=== PATIENT | female | born 1985 ===

== ENCOUNTER 2024-02-02 06:06 | Emergency (ER) | payer OTHER, SELFPAY ==
[2024-02-02 06:07] VITALS: BP 99/45; PULSE 108; TEMP 37; O2SAT 95; BMI 22.5
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
[2024-02-02] MEDS: PROMETHAZINE HCL 25 MG/ML VIAL IM (06:31)
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
[2024-02-02] MEDS: MORPHINE SULFATE 2 MG/ML SYRINGE 1 MG IV (08:30)
[2024-02-02] MEDS: ONDANSETRON PF 4 MG/2 ML VIAL IV ×2 (08:31→09:20)
[2024-02-02 09:16] VITALS: BP 95/53
[2024-02-02] MEDS: KETOROLAC TROMETHAMINE 30 MG/ML VIAL 15 MG IVP ×2 (09:19→10:15)
[2024-02-02] MEDS: MORPHINE SULFATE 2 MG/ML SYRINGE IV (09:19)
[2024-02-02 09:24] VITALS: O2SAT 98
[2024-02-02 09:25] VITALS: BP 101/52; O2SAT 98
[2024-02-02] MEDS: PROCHLORPERAZINE 10 MG/2 ML VIAL IV (10:15)
== END 2024-02-02 11:35 | disposition home or self-care (01) ==
PROVIDERS: Emergency Provider Emergency Medicine
DX: R51.9 Headache, unspecified (principal); S09.90XA Unspecified injury of head, initial encounter; V40.6XXA Car passenger injured in collision with pedestrian or animal in traffic accident, initial encounter
CPT/HCPCS: 70450; 71045; 72125; 73030; 74176; 96372; 96374; 96375; 96376; 99284; J0780; J1885; J2250; J2270; J2405

== ENCOUNTER 2024-06-04 11:30 | Emergency (ER) | payer OTHER, SELFPAY ==
[2024-06-04 11:42] VITALS: BP 103/73; PULSE 86; TEMP 36.6; O2SAT 100; BMI 23.2
[2024-06-04 12:40] LABS: Basophils Absolute Auto 0.1 10^3/uL (0.0-0.1); Basophils Percent Auto 0.8 % (0.2-2.0); Eosinophils Percent Auto 0.3 % (0.9-7.0); Hemoglobin 14.1 g/dL (12.0-16.0); Immature Granulocytes Abs Auto 0.02 10^3/uL (0.00-0.03); Immature Granulocytes Pct Auto 0.3 % (0.0-0.5); Lymphocytes Absolute Auto 2.2 10^3/uL (1.2-3.8); Lymphocytes Percent Auto 29.3 % (20.5-60.0); Mean Corpuscular HGB Conc 33.6 g/dL (29.9-35.2); Mean Corpuscular Hemoglobin 29.8 pg (26.7-34.0); Mean Corpuscular Volume 88.8 fL (81.0-99.0); Mean Platelet Volume 9.3 fL (9.5-13.5); Monocytes Absolute Auto 0.4 10^3/uL (0.3-0.8); Monocytes Percent Auto 5.9 % (1.7-12.0); Neutrophils Absolute Auto 4.7 10^3/uL (1.4-6.5); Neutrophils Percent Auto 63.4 % (43.0-75.0); Platelet Count 256 10^3/uL (150-450); Red Blood Count 4.73 10^6/uL (4.20-5.40); Red Cell Distribution Width 12.6 % (11.0-15.0); White Blood Count 7.5 10^3/uL (4.0-11.0)
[2024-06-04] MEDS: KETOROLAC TROMETHAMINE 30 MG/ML VIAL 15 MG IM (12:40)
[2024-06-04] MEDS: ONDANSETRON 4 MG RAPDIS TABLET SL (12:40)
[2024-06-04] MEDS: DICYCLOMINE HCL 20 MG/2 ML VIAL IM (12:40)
[2024-06-04 12:59] LABS: Alanine Aminotransferase 24 U/L (14-59); Albumin Globulin Ratio 1.1; Albumin Level 4.2 g/dL (3.4-5.0); Alkaline Phosphatase 100 U/L (46-116); Anion Gap 12.5; Aspartate Amino Transferase 15 U/L (15-37); BUN Creatinine Ratio 5.5; Bilirubin Total 0.3 mg/dL (0.2-1.0); Calcium 9.2 mg/dL (8.5-10.1); Carbon Dioxide 29.2 mmol/L (21.0-32.0); Chloride 96 mmol/L (98-107); Estimated GFR (African America >60 (>=60 mL/min/1.73m^2); Estimated GFR (Non-African Ame >60 (>=60 mL/min/1.73m^2); Globulin 3.9 g/dL; Glucose 95 mg/dL (74-106); Potassium 3.7 mmol/L (3.5-5.1); Sodium 134 mmol/L (136-145); Total Protein 8.1 g/dL (6.4-8.2)
--- NOTE | 2024-06-04 14:16 | ED.ABDPAIN1 ---
HPI - Abdominal Pain General Chief Complaint: Abdominal Pain Stated Complaint: abdm pain,vomitting Time Seen by Provider: 06/04/24 12:07 Source: patient Mode of arrival: walk-in Limitations: no limitations History of Present Illness HPI narrative: 38-year-old female is coming to the ER with epigastric discomfort associated with nausea and vomiting for the last 3 days, initially mentioned that she had some blood in vomiting after vomiting multiple time, she have a colostomy bag after she recently had a within the last few months diagnosis of pancreatic cancer according to her history The patient is complaining that she saw some blood in stool as well as the clip that she had in her stomach The patient denies any other concerns Related Data Home Medications ?Medication ?Instructions ?Recorded ?Confirmed buspirone 15 mg tablet 15 mg PO BID 06/04/24 06/04/24 clonidine HCl 0.1 mg tablet 0.1 mg PO Q8H PRN nausea and 06/04/24 06/04/24 vomiting eszopiclone 2 mg tablet 2 mg PO BEDTIME 06/04/24 06/04/24 hydroxyzine pamoate 25 mg capsule 25 mg PO Q8H PRN nausea and 06/04/24 06/04/24 vomiting lorazepam 2 mg tablet 2 mg PO Q8H PRN anxiety 06/04/24 06/04/24 meloxicam 7.5 mg tablet 7.5 mg PO BID 06/04/24 06/04/24 ondansetron 4 mg disintegrating 8 mg PO Q6H PRN nausea and vomiting 06/04/24 06/04/24 tablet pantoprazole 40 mg tablet,delayed 40 mg PO Q12H 06/04/24 06/04/24 release promethazine 25 mg tablet 25 mg PO Q6H PRN nausea and 06/04/24 06/04/24 vomiting venlafaxine 150 mg 150 mg PO DAILY 06/04/24 06/04/24 capsule,extended release 24 hr Previous Rx's ?Medication ?Instructions ?Recorded famotidine 20 mg tablet (Pepcid) 20 mg PO BID #10 tabs 02/02/24 dicyclomine 20 mg tablet 20 mg PO QID PRN abdominal pain 06/04/24 #10 tabs famotidine 20 mg tablet (Pepcid) 20 mg PO BID #10 tabs 02/24/25 promethazine 25 mg tablet 25 mg PO TID PRN nausea and 06/04/24 vomiting #20 tabs Allergies Allergy/AdvReac Type Severity Reaction Status Date / Time bacitracin Allergy Severe Anaphylaxis Verified 02/02/24 06:15 cetirizine (From Zyrtec) Allergy Severe Anaphylaxis Verified 02/02/24 06:15 clindamycin Allergy Severe Anaphylaxis Verified 02/02/24 06:15 naproxen Allergy Severe Anaphylaxis Verified 02/02/24 06:15 Penicillins Allergy Severe Anaphylaxis Verified 02/02/24 06:15 Review of Systems ROS Status of ROS 10 or more systems reviewed and unremarkable except as noted in history and below Exam Narrative Exam Narrative: Nurses notes and vital signs reviewed and patient is not hypoxic. General: Well-appearing and in no apparent distress. Skin: Warm, dry, no pallor noted. No rash. Head: Normocephalic, atraumatic. Neck: Supple, non-tender. Eye: Pupils are equal, round and EOMI. No scleral icterus. Ears, Nose, Mouth, and Throat: TM are clear, no nasal mucosal hypertrophy. Oral mucosa is moist, no posterior oropharynx erythema, uvula is mid-line Cardiovascular: Regular Rate and Rhythm without murmur, gallop or rub. Respiratory: No accessory muscle use or respiratory distress. Lungs are clear to auscultation, no wheezing, rales or rhonchi Chest Wall: no tenderness Back: No midline thoracic or lumbar vertebral tenderness. No CVA tenderness Musculoskeletal: normal ROM, no calf or popliteal tenderness, no lower extremity edema/swelling GI: Abdomen is soft, the abdomen was soft and there was no tenderness induced with palpation the patient had a colostomy bag in the lower abdomen in addition to there is no blood in the stool, the patient had a vomiting initially that was nonbloody Constitutional Vital Signs, click to edit/add: Last Vital Signs Temp 97.9 F 06/04/24 11:42 Pulse 86 06/04/24 11:42 Resp 18 06/04/24 11:42 BP 103/73 06/04/24 11:42 Pulse Ox 100 06/04/24 11:42 O2 Del Method Room Air 06/04/24 11:42 Course Vital Signs Vital signs: Vital Signs Temperature 97.9 F 06/04/24 11:42 Pulse Rate 86 06/04/24 11:42 Respiratory Rate 18 06/04/24 11:42 Blood Pressure 103/73 06/04/24 11:42 Pulse Oximetry 100 06/04/24 11:42 Oxygen Delivery Method Room Air 06/04/24 11:42 Temperature 97.9 F 06/04/24 11:42 Pulse Rate 86 06/04/24 11:42 Respiratory Rate 18 06/04/24 11:42 Blood Pressure 103/73 06/04/24 11:42 Pulse Oximetry 100 06/04/24 11:42 Oxygen Delivery Method Room Air 06/04/24 11:42 MDM - Abdominal Pain MDM Narrative Medical decision making narrative: The patient CBC and chemistry showed no acute pathology CAT scan of the abdomen pelvis showed no acute pathology The patient was provided with GI cocktail and Compazine and discharged home with supportive care of Pepcid and Bentyl The patient is to follow up with primary care physician in next 2-3 days or to return to the emergency department should any of the signs or symptoms worsen or new symptoms develop. The patient agrees with the following Diagnosis and Treatment plan and the patient will be discharged home. Lab Data Labs: Lab Results 06/04/24 Range/Units 12:27 WBC 7.5 (4.0-11.0) 10^3/uL RBC 4.73 (4.20-5.40) 10^6/uL Hgb 14.1 (12.0-16.0) g/dL Hct 42.0 (36.0-48.0) % MCV 88.8 (81.0-99.0) fL MCH 29.8 (26.7-34.0) pg MCHC 33.6 (29.9-35.2) g/dL RDW 12.6 (11.0-15.0) % Plt Count 256 (150-450) 10^3/uL MPV 9.3 L (9.5-13.5) fL Neut % (Auto) 63.4 (43.0-75.0) % Lymph % (Auto) 29.3 (20.5-60.0) % [place] % (Auto) 5.9 (1.7-12.0) % Eos % (Auto) 0.3 L (0.9-7.0) % Baso % (Auto) 0.8 (0.2-2.0) % Neut # (Auto) 4.7 (1.4-6.5) 10^3/uL Lymph # (Auto) 2.2 (1.2-3.8) 10^3/uL [place] # (Auto) 0.4 (0.3-0.8) 10^3/uL Eos # (Auto) 0.0 (0.0-0.7) 10^3/uL Baso # (Auto) 0.1 (0.0-0.1) 10^3/uL Abs Immat Gran (auto) 0.02 (0.00-0.03) 10^3/uL Imm/Tot Granulo (auto) 0.3 (0.0-0.5) % Sodium 134 L (136-145) mmol/L Potassium 3.7 (3.5-5.1) mmol/L Chloride 96 L (98-107) mmol/L Carbon Dioxide 29.2 (21.0-32.0) mmol/L Anion Gap 12.5 BUN 5.0 L (7.0-18.0) mg/dL Creatinine 0.91 (0.55-1.02) mg/dL Est GFR ( Amer) >60 (>=60 mL/min/1.73m^2) Est GFR (Non-Af Amer) >60 (>=60 mL/min/1.73m^2) BUN/Creatinine Ratio 5.5 Glucose 95 (74-106) mg/dL Calcium 9.2 (8.5-10.1) mg/dL Total Bilirubin 0.3 (0.2-1.0) mg/dL AST 15 (15-37) U/L ALT 24 (14-59) U/L Alkaline Phosphatase 100 (46-116) U/L Total Protein 8.1 (6.4-8.2) g/dL Albumin 4.2 (3.4-5.0) g/dL Globulin 3.9 g/dL Albumin/Globulin Ratio 1.1 Lipase 44.0 (16.0-77.0) U/L Serum HCG, Qual Negative (NEGATIVE) Discharge Plan Discharge Chief Complaint: Abdominal Pain Clinical Impression: Abdominal pain Patient Disposition: Home, Self-Care Time of Disposition Decision: 14:47 Condition: Good Prescriptions / Home Meds: New famotidine [Pepcid] 20 mg tablet 20 mg PO BID Qty: 10 0RF promethazine 25 mg tablet 25 mg PO TID PRN (Reason: nausea and vomiting) Qty: 20 0RF dicyclomine 20 mg tablet 20 mg PO QID PRN (Reason: abdominal pain) Qty: 10 0RF No Action famotidine [Pepcid] 20 mg tablet 20 mg PO BID Qty: 10 0RF buspirone 15 mg tablet 15 mg PO BID clonidine HCl 0.1 mg tablet 0.1 mg PO Q8H PRN (Reason: nausea and vomiting) eszopiclone 2 mg tablet 2 mg PO BEDTIME hydroxyzine pamoate 25 mg capsule 25 mg PO Q8H PRN (Reason: nausea and vomiting) lorazepam 2 mg tablet 2 mg PO Q8H PRN (Reason: anxiety) meloxicam 7.5 mg tablet 7.5 mg PO BID ondansetron 4 mg tablet,disintegrating 8 mg PO Q6H PRN (Reason: nausea and vomiting) pantoprazole 40 mg tablet,delayed release (DR/EC) 40 mg PO Q12H promethazine 25 mg tablet 25 mg PO Q6H PRN (Reason: nausea and vomiting) venlafaxine 150 mg capsule,extended release 24hr 150 mg PO DAILY Print Language: Nauruan Instructions: Abdominal Pain (ED) Referrals: Flex Hebert MD [Primary Care Provider] - 1 week Discharge Date/Time: 06/04/24 14:55
[2024-06-04] MEDS: PROCHLORPERAZINE 10 MG/2 ML VIAL IM (14:25)
[2024-06-04] MEDS: lidocaine HCL 15 ML, MAG HYDROX/ALUMINUM HYD/SIMETH 30 ML, HYOSCYAMINE SULFATE 0.25 MG PO (14:26)
[2024-06-04 14:28] LABS: HCG Qualitative NEGATIVE (NEGATIVE); Internal Control Within Normal Limits
== END 2024-06-04 14:55 | disposition home or self-care (01) ==
PROVIDERS: Emergency Provider Emergency Medicine; PCP Family Medicine
DX: R10.9 Unspecified abdominal pain (principal); Z93.3 Colostomy status; C25.9 Malignant neoplasm of pancreas, unspecified
CPT/HCPCS: 36415; 74176; 80053; 81001; 83690; 84703; 85025; 96372; 99285; J0500; J0780; J1885; Q0162